=== PATIENT | female | born 1975 | race Caucasian/White ===

== ENCOUNTER 2017-02-14 23:30 | Emergency (ER) | payer MEDICAID ==
[~2017-02-14] VITALS: Ht 162.6 cm; Wt 62.2 kg
[~2017-02-14 23:30] MED LIST: BENZ2TAB27 PO; CITA20TA15 PO; DOCU100C16 PO; GABA250S1 PO; LEVE1000 PO; LEVE500T9 PO; MULT-1749 PO; QUET400T PO; RANI150T8 PO; SYN.075 PO
[2017-02-14 23:38] VITALS: BP 134/80
--- NOTE | 2017-02-14 23:54 | NUR ---
AMBULATED TO ER BED 12 WITH CAREGIVERS
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
--- NOTE | 2017-02-15 01:23 | NUR ---
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
[2017-02-15 01:49] VITALS: BP 134/80
--- NOTE | 2017-02-15 01:50 | NUR ---
Patient discharged with v/s stable. Written and verbal after care instructions given and explained to parent/guardian. Parent/Guardian verbalized understanding. Ambulatorysteady gait. All questions addressed prior to discharge. Advised to follow up with PMD.
== END 2017-02-15 01:50 | disposition home or self-care (01) ==
LOC: MED 23:30
DX: Z00.8 Encounter for other general examination (principal); K21.9 Gastro-esophageal reflux disease without esophagitis; Z79.899 Other long term (current) drug therapy
CPT/HCPCS: 99281

== ENCOUNTER 2017-02-15 20:09 | Emergency (ER) | payer MEDICAID ==
[~2017-02-15] VITALS: Ht 157.5 cm; Wt 62.1 kg
[2017-02-15 20:13] VITALS: BP 115/73
--- NOTE | 2017-02-15 21:26 | NUR ---
PT AMBULATED TO BED 01
--- NOTE | 2017-02-15 21:27 | NUR ---
Dr. Armendariz evaluating patient at bedside.
[2017-02-15] MEDS ORDERED: CLINDAMYCIN 600 MG/4 ML VIAL IM ONE (21:40)
[2017-02-15] MEDS ORDERED: ACETAMINOPHEN EXTRA STRENGTH 500 MG TAB PO ONE (21:45)
--- NOTE | 2017-02-15 22:46 | NUR ---
41Y / F PRESENTS TO ER C/O RT ANKLE RASH. NKA PMH SCHIZOPHRENIA, GERD, SEIZURE, DEVELOPMENTAL DELAY. PT GUARDIAN STATES SHE NOTICED THE RASH THIS AM. SKIN IS RED WITH BLISTERING TO RT ANKLE WITH RED SPOT ABOVE ANKLE WITH NO BLISTERING. PT IS NOT C/O OF PAIN OR ITCHING AT THIS TIME. ER MD NOTIFIED OF PT STATUS, PT IN BED WITH FAMILY AT BEDSIDE.
[2017-02-15 22:49] VITALS: BP 114/70
--- NOTE | 2017-02-15 22:49 | NUR ---
Patient discharged with v/s stable. Written and verbal after care instructions given and explained. Patient alert, oriented and verbalized understanding of instructions. Ambulatory with steady gait. All questions addressed prior to discharge. ID band removed. Patient advised to follow up with PMD. Rx of ACETAMINOPHEN 500MG, CLINDAMYCIN 300MG given. Patient educated on indication of medication including possible reaction and side effects. Opportunity to ask questions provided and answered.
== END 2017-02-15 22:49 | disposition home or self-care (01) ==
LOC: MED 20:17
DX: L03.115 Cellulitis of right lower limb (principal); K21.9 Gastro-esophageal reflux disease without esophagitis
CPT/HCPCS: 73630; 96372; 99284; J3490

== ENCOUNTER 2019-02-06 18:55 | Emergency (ER) | payer MEDICAID ==
[~2019-02-06] VITALS: Ht 157.5 cm; Wt 66.2 kg
[2019-02-06 19:05] VITALS: BP 147/90
--- NOTE | 2019-02-06 19:05 | NUR ---
TO BED # 11 AMBULATORY
--- NOTE | 2019-02-06 19:38 | NUR ---
43 Y/O FEMALE PRESENTS TO ED, C/O ABDOMINAL PAIN 8/10 X2 DAYS. PT STATES FEELING BLOATED, WENT TO URGENT CARE TODAY AND GOT REFERRED TO ED. PT DENIES ANY N/V/D. PT DENIES TAKING ANY MEDICATIONS FOR PAIN. BS ACTIVE X4 QUADRANTS. PT STABLE. ERMD AWARE. WILL CONTINUE TO MONITOR.
--- NOTE | 2019-02-06 19:46 | NUR ---
Dr. Garcia examining patient.
--- NOTE | 2019-02-06 20:10 | NUR ---
PT RETURN FROM XRAY
[2019-02-06 20:47] VITALS: BP 147/90
--- NOTE | 2019-02-06 20:47 | NUR ---
Patient discharged with v/s stable. Written and verbal after care instructions given and explained. Patient alert, oriented and verbalized understanding of instructions. Ambulatory with steady gait. All questions addressed prior to discharge. ID band removed. Patient advised to follow up with PMD. Rx of zenaida lax, mineral oil was given. Patient educated on indication of medication including possible reaction and side effects. Opportunity to ask questions provided and answered. pt stated her pain level was 2/10 prior to d/c.
== END 2019-02-06 20:47 | disposition home or self-care (01) ==
LOC: MED 18:55
DX: K59.00 Constipation, unspecified (principal); K21.9 Gastro-esophageal reflux disease without esophagitis; F20.9 Schizophrenia, unspecified; F32.9 Major depressive disorder, single episode, unspecified; Z86.69 Personal history of other diseases of the nervous system and sense organs; Z86.39 Personal history of other endocrine, nutritional and metabolic disease; Z79.899 Other long term (current) drug therapy
CPT/HCPCS: 74022; 81002; 81025; 99283

== ENCOUNTER 2019-02-23 17:45 | Emergency (ER) | payer MEDICAID ==
[~2019-02-23] VITALS: Ht 152.4 cm; Wt 68.0 kg
[2019-02-23 17:50] VITALS: BP 156/94
--- NOTE | 2019-02-23 18:00 | NUR ---
PT AMBULATED TO BED WITH CAREGIVER
--- NOTE | 2019-02-23 18:22 | NUR ---
43/F BIB CAREGIVER C/O INTERMITTENT CONSTIPATION, X1 MONTH. C/O WORSENING GENERALIZED ABD PAIN. LBM "A LONG TIME AGO". STOOLS ARE HARD. RELIEF OF ABD PAIN "SOMETIMES" AFTER PASSING STOOL. DENIES N/V, FEVER. TAKING CONSTIPATION MEDS AT HOME TO NO RELIEF. HX CONSTIPATION, PARKIN[place], GERD, SEIZURE, MOOD D/O, HYPOTHYROID RX MINERAL OIL, LACTULOSE, MILK OF MAGNESIA, RANITIDINE, BENZTROPINE, GABAPENTIN, CITALOPRAM, DEPAKOTE, FAMOTIDINE, KEPPRA, LEVOTHYROXINE, SEROQUEL.
[2019-02-23] MEDS ORDERED: MAGNESIUM CITRATE 300 ML BTL PO ONE (19:00)
[2019-02-23] MEDS ORDERED: KETOROLAC 60 MG/2 ML VIAL IM ONE (19:00)
--- NOTE | 2019-02-23 19:05 | NUR ---
BEDSIDE REPORT RECIEVED FROM BYRON UNDERWOOD. ASSUMED CARE AT THIS TIME.
--- NOTE | 2019-02-23 19:05 | NUR ---
REPORT TO WENCESLAO MATTHEWS. TRANSFER OF CARE AT THIS TIME.
--- NOTE | 2019-02-23 19:30 | NUR ---
Patient discharged with v/s stable. Written and verbal after care instructions given and explained. Patient alert, oriented and verbalized understanding of instructions. Ambulatory with steady gait. All questions addressed prior to discharge. ID band removed. Patient advised to follow up with PMD. Rx of MIRALAX AND MINERAL OIL given. Patient educated on indication of medication including possible reaction and side effects. Opportunity to ask questions provided and answered.
== END 2019-02-23 19:30 | disposition home or self-care (01) ==
LOC: MED 17:45
DX: K59.00 Constipation, unspecified (principal); K21.9 Gastro-esophageal reflux disease without esophagitis; E07.9 Disorder of thyroid, unspecified; G20 Parkinson's disease; Z79.899 Other long term (current) drug therapy
CPT/HCPCS: 74018; 81002; 81025; 96372; 99283; J1885; Q0092

== ENCOUNTER 2021-09-21 20:16 | Emergency (ER) | payer MEDICAID ==
[~2021-09-21] VITALS: Ht 149.9 cm; Wt 75.1 kg
[2021-09-21 20:32] VITALS: BP 126/80
--- NOTE | 2021-09-22 01:30 | NUR ---
call to be evaluated by ERM[facility], no response.
--- NOTE | 2021-09-22 01:45 | NUR ---
called patient back, no response.
--- NOTE | 2021-09-22 02:15 | NUR ---
PATIENT ELOPED FROM FACILITY. DISCHARGE INSTRUCTIONS NOT GIVEN TO PATIENT. DR. Alvarado NOTIFIED.
--- NOTE | 2021-09-22 02:15 | NUR ---
Called facility by phone and states, "We took her back home."
== END 2021-09-22 02:15 | disposition left against medical advice (07) ==
LOC: MED 20:16
DX: S09.90XA Unspecified injury of head, initial encounter (principal); Z53.20 Procedure and treatment not carried out because of patient's decision for unspecified reasons; W18.30XA Fall on same level, unspecified, initial encounter; Y93.89 Activity, other specified; Y92.89 Other specified places as the place of occurrence of the external cause; Y99.8 Other external cause status
CPT/HCPCS: 70450; 70486